=== PATIENT | female | born 1975 | race African-American/Black ===

== ENCOUNTER 2016-08-23 08:54 | Emergency (ER) | payer OTHER ==
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
[2016-08-23 11:39] VITALS: BP 136/92
== END 2016-08-23 11:35 | disposition home or self-care (01) ==
LOC: ER 08:54
DX: S16.1XXA Strain of muscle, fascia and tendon at neck level, initial encounter (principal); M54.2 Cervicalgia; M25.512 Pain in left shoulder; V87.7XXA Person injured in collision between other specified motor vehicles (traffic), initial encounter
CPT/HCPCS: 72050; 99283

== ENCOUNTER 2016-10-07 16:13 | Emergency (ER) | payer OTHER ==
[2016-10-07 17:03] VITALS: BP 152/98
[2016-10-07] MEDS ORDERED: KETOROLAC TROMETHAMINE INJ/PF 30 MG/1 ML SDV IM ONE (18:02)
[2016-10-07] MEDS ORDERED: DEXAMETHASONE SOD PHOS INJ 10 MG/1 ML VIAL IM ONE (18:02)
--- NOTE | 2016-10-07 18:06 | ER Document Report ---
HPI - HPI Pain Level: 3 Notes: Patient is a 41-year-old female who presents to the ED complaining of a headache that started this morning. The headache is frontal into her temples described as an achy discomfort. Patient states that the headache did not start abruptly. The pain does not radiate. Nothing makes her pain worse. Patient states that her symptoms have not worsened throughout the day. She has been using ibuprofen throughout the day with minimal relief. She denies any noise or light sensitivity. Denies any recent illness. Denies any muscle weakness/paralysis. Patient denies any and is currently on her menstrual period. Denies any head injury. Patient does not have a PCM. She does not take any medicines daily and no other significant past medical history. No drug allergies. Patient declined allergy to Benadryl that was listed above. - ROS Notes: REVIEW OF SYSTEMS: CONSTITUTIONAL : Denies fever, chills, or sweats. Denies recent illness. EENT: Denies eye, ear, throat, or mouth pain or symptoms. Denies nasal or sinus congestion or discharge. Denies throat, tongue, or mouth swelling or difficulty swallowing. CARDIOVASCULAR: Denies chest pain. Denies palpitations or racing or irregular heart beat. Denies ankle edema. RESPIRATORY: Denies cough, cold, or chest congestion. Denies shortness of breath, difficulty breathing, or wheezing. GASTROINTESTINAL: Denies abdominal pain or distention. Denies nausea, vomiting , or diarrhea. Denies blood in vomitus, stools, or per rectum. Denies black, tarry stools. Denies constipation. GENITOURINARY: Denies difficulty urinating, painful urination, burning, frequency, blood in urine, or discharge. FEMALE GENITOURINARY: Denies vaginal bleeding, heavy or abnormal periods, irregular periods. Denies vaginal discharge or odor. MUSCULOSKELETAL: Denies back or neck pain or stiffness. Denies joint pain or swelling. SKIN: Denies rash, lesions or sores. NEUROLOGICAL: see hpi. Denies confusion or altered mental status. Denies passing out or loss of consciousness. Denies dizziness or lightheadedness. Denies weakness or paralysis or loss of use of either side. Denies problems with gait or speech. Denies sensory loss, numbness, or tingling. Denies seizures. PSYCHIATRIC: Denies anxiety or stress. Denies depression, suicidal ideation, or homicidal ideation. ALL OTHER SYSTEMS REVIEWED AND NEGATIVE. Dictation was performed using [email or web address] voice recognition software - CARDIOVASCULAR Cardiovascular: DENIES: Chest pain - REPRODUCTIVE LMP: october 14 Reproductive: DENIES: : - DERM Skin Color: Normal Past Medical History - Social History Smoking Status: Never Smoker Chew tobacco use (# tins/day): No Frequency of alcohol use: None Drug Abuse: None Family History: Reviewed & Not Pertinent Patient has suicidal ideation: No Patient has homicidal ideation: No - Past Medical History Cardiac Medical History: Reports: Hx Hypertension Renal/ Medical History: Denies: Hx Peritoneal Dialysis Past Surgical History: Reports: Hx Cholecystectomy, Hx Gynecologic Surgery - cyst removal - Immunizations Hx Diphtheria, Pertussis, Tetanus Vaccination: Yes Vertical Provider Document - CONSTITUTIONAL Agree With Documented VS: Yes Notes: PHYSICAL EXAMINATION: GENERAL: Well-appearing, well-nourished and in no acute distress. HEAD: Atraumatic, normocephalic. Non-tender. EYES: Pupils equal round and reactive to light, extraocular movements intact, sclera anicteric, conjunctiva are normal. ENT: EAC clear b/l. TM's intact b/l without erythema, fluid, or perforation. Nares patent and without discharge. oropharynx clear without exudates. No tonsilar hypertrophy or erythema. Moist mucous membranes. No sinus tenderness. NECK: Normal range of motion, supple without lymphadenopathy. No rigidity. Non -tender. LUNGS: Breath sounds clear to auscultation bilaterally and equal. No wheezes rales or rhonchi. HEART: Regular rate and rhythm without murmurs, rubs, gallops. Musculoskeletal: Extremities b/l: FROM to passive/active. Strength 5+/5. Extremities: No cyanosis, clubbing, or edema b/l. Peripheral pulses 2+. Capillary refill less than 3 seconds. NEUROLOGICAL: Cranial nerves grossly intact. Normal speech, normal gait. Normal sensory, motor exams. Reflexes 2+. PSYCH: Normal mood, normal affect. SKIN: Warm, Dry, normal turgor, no rashes or lesions noted. - INFECTION CONTROL TRAVEL OUTSIDE OF THE [place] IN LAST 30 DAYS: No - RESPIRATORY O2 Sat by Pulse Oximetry: 100 Course - Re-evaluation Re-evalutation: 10/07/16 18:06 Patient is an afebrile, well-hydrated, 41-year-old female presents the ED with a headache. Vitals are stable with a slightly elevated blood pressure 1 reading. PE otherwise unremarkable for any focal neurological deficits. Patient states that she drove here from work so she does not have a ride. Patient declined migraine cocktail treatment in the ED. Patient expressed that her headache was mild and just wanted something simple to go with. Toradol 15 mg given IM today along with Decadron 10 mg IM. Low suspicion for any acute glaucoma, temporal arteritis, meningitis, tracheal hemorrhage, CVA. And benefits of treatment reviewed and understood by the patient. Conservative measures otherwise for symptoms. Recheck/social PCM in 2-3 days. Return to the ED with any worsening/concerning symptoms as reviewed in discharge. Consider consult with a neurologist as well. Patient is in agreement. - Vital Signs Vital signs: Temp Pulse Resp BP Pulse Ox 98.3 F 74 20 152/98 H 100 10/07/16 16:17 10/07/16 16:17 10/07/16 16:17 10/07/16 17:02 10/07/16 16:17 Discharge - Discharge Clinical Impression: Headache Qualifiers: Headache type: tension-type Headache chronicity pattern: acute headache Intractability: intractable Qualified Code(s): G44.201 - Tension-type headache, unspecified, intractable Condition: Stable Disposition: HOME, SELF-CARE Instructions: Headache ([facility]), Toradol Injection ([facility]) Additional Instructions: OTC meds as needed Maintain adequate fluid intake Lower stress levels Warm/cool compresses may help Recheck with your PCM in 2-3 days Return to the ED with any worsening symptoms and/or development of fever, worsening headache, chest pain, palpitations, syncope, shortness of breath, trouble breathing, abdominal pain, n/v/d, blood in stool/urine, loss of control of bowel/bladder, urinary retention, muscle weakness/paralysis, numbness/ tingling, or other worsening symptoms that are concerning to you. Forms: Elevated Blood Pressure Referrals: [facility] [Provider Group] - Follow up as needed [facility] [Provider Group] - Follow up as needed NEUROLOGY [Provider Group] - Follow up as needed
== END 2016-10-07 19:06 | disposition home or self-care (01) ==
LOC: ER 16:13
DX: G44.201 Tension-type headache, unspecified, intractable (principal)
CPT/HCPCS: 99283; 96372; 96374; J1885; J1100

== ENCOUNTER 2017-01-11 19:56 | Emergency (ER) | payer OTHER ==
--- NOTE | 2017-01-11 21:00 | ER Document Report ---
ED General - General Chief Complaint: Vaginal Bleeding Stated Complaint: VAGINAL BLEEDING Time Seen by Provider: 01/11/17 20:59 Notes: Patient is a 41 year old female who presents to the ED complaining of vaginal bleeding and pelvic pain. She states she had a period 3 weeks ago the was normal. Then over the past weeks she has been suffering from initial spotting to heavy clots with pelvic pain in her RLQ. She admits to nausea without vomiting otherwise denies abdominal pain, diarrhea or constipation. PRevious OBGYN s/f ovarian cysts and fibroids TRAVEL OUTSIDE OF THE [place] IN LAST 30 DAYS: No - Related Data Allergies/Adverse Reactions: diphenhydramine [Diphenhydramine] Adverse Reaction (Intermediate, Verified 11/07 15:07) Anxiety Past Medical History - Social History Smoking Status: Never Smoker Family History: Reviewed & Not Pertinent Patient has suicidal ideation: No Patient has homicidal ideation: No - Past Medical History Cardiac Medical History: Reports: Hx Hypertension Renal/ Medical History: Denies: Hx Peritoneal Dialysis Past Surgical History: Reports: Hx Cholecystectomy, Hx Gynecologic Surgery - cyst removal - Immunizations Hx Diphtheria, Pertussis, Tetanus Vaccination: Yes Review of Systems - Review of Systems Constitutional: No symptoms reported Cardiovascular: No symptoms reported Respiratory: No symptoms reported Gastrointestinal: No symptoms reported Female Genitourinary: See HPI -: Yes All other systems reviewed and negative Physical Exam - Vital signs Vitals: Temp Pulse Resp BP Pulse Ox 98.9 F 76 18 173/112 H 100 01/11/17 20:07 01/11/17 20:07 01/11/17 20:07 01/11/17 20:07 01/11/17 20:07 - Notes Notes: PHYSICAL EXAM GENERAL: Alert, interacts well. LUNGS: Clear to auscultation bilaterally, no wheezes, rales, or rhonchi. No respiratory distress. HEART: Regular rate and rhythm. No murmurs, gallops, or rubs. ABDOMEN: Soft, nondistended, nontender. No guarding, rebound, or rigidity.. Bowel sounds present in all 4 quadrants. FEMALE : Normal external exam. No evidence of lesions, lacerations, bruising or vesicles. Speculum exam normal cervix closed. No evidence of vaginal discharge with odor. No evidence of lesions. Moderate dark blood within the vaginal vault. Bimanual exam normal no cervical motion tenderness. No adnexal mass or adnexal tenderness. EXTREMITIES: Moves all 4 extremities spontaneously. No edema, radial and dorsalis pedis pulses 2/4 bilaterally. No cyanosis. NEUROLOGICAL: Alert and oriented x4. Normal speech. PSYCH: Normal affect, normal mood. SKIN: Warm, dry, normal turgor. No rashes or lesions noted. Course - Re-evaluation Re-evalutation: 01/12/17 22:30 Patient is a 41-year-old female who is hemodynamically stable, no acute distress afebrile. No evidence of leukocytosis or anemia noted on CBC. No evidence of electrolyte abnormalities, acute renal failure liver dysfunction noted on chemistry. hcg is negative. Transvaginal ultrasound does show evidence of a fibroid with echogenic matter consistent with blood. At this time patient is stable not requiring blood transfusion. Low clinical suspicion for any acute intra-abdominal or pelvic pathology given patient is afebrile absence of tachycardia and hypertension. Patient will be discharged home on Provera to follow-up with [facility]. Patient agrees with plan. - Vital Signs Vital signs: Temp Pulse Resp BP Pulse Ox 98.6 F 84 18 128/88 H 96 01/12/17 00:29 01/12/17 00:29 01/11/17 20:07 01/12/17 00:29 01/12/17 00:29 - Laboratory Result Diagrams: 01/11/17 21:10 Laboratory results interpreted by me: 01/11/17 01/11/17 21:10 23:12 Hgb 11.5 L Hct 34.2 L MCV 79 L MCH 26.5 L RDW 15.7 H Urine Blood LARGE H - Diagnostic Test Radiology reviewed: Reports reviewed Discharge - Discharge Clinical Impression: Dysfunctional uterine bleeding Condition: Good Disposition: HOME, SELF-CARE Additional Instructions: VAGINAL BLEEDING: You are having an episode of abnormal bleeding. Causes of abnormal vaginal bleeding can include miscarriage or tubal , tumors such as cancer or benign fibroids, medication effects, or hormone imbalance. Testing can eliminate unsuspected , tumors, or infection as a cause. "Dysfunctional uterine bleeding" is due to hormone imbalance, and is especially common at times when the normal cycle is disturbed -- whether by recent , use of control pills or hormones, or impending menopause. If the bleeding is innocent, most commonly a short course of hormones is given to restore the uterus to normal. Sometimes, the normal menstrual cycle corrects itself naturally. Sometimes , brief hormone therapy, or even a D&C is required. Your physician will advise you. Treatment for anemia may be required if bleeding is severe. You should rest and avoid intercourse until the bleeding is controlled. Call the doctor or return for re-examination if you feel faint, have increasing pain, or have a major increase in the amount of bleeding. FIBROIDS: Fibroids are benign growths or tumors in the uterus. They can cause enlargement of the uterus, irregular bleeding, severe bleeding with periods, and abdominal pain. Anemia may result if periods are heavy. Fibroids tend to grow until menopause, then slowly shrink. If fibroids cause severe symptoms, they can be treated surgically. Call or return if vaginal bleeding or pain becomes severe. PROVERA: Provera (medroxyprogesterone) is usually used to stop excessive uterine bleeding or to regulate the periods. Provera is a form of progesterone, the hormone that stimulates the uterus lining to mature during the second half of your cycle. High doses of Provera can usually stop uterine bleeding. It's most useful for the abnormal bleeding that occurs when periods are irregular, such as around menopause. Provera usually isn't helpful for bleeding that occurs after Depo-Provera or Norplant. There is often another heavy "period" when you finish the Provera. Afterwards, the periods usually return to normal within a month or two. Contact your doctor if bleeding becomes more severe, or if you develop abdominal pain, lightheadedness, fever, or other new symptoms. ORAL NARCOTIC MEDICATION: You have been given a prescription for pain control. This medication is a narcotic. It's best taken with food, as nausea can result if taken on an empty stomach. Don't operate machinery or drive within six hours of taking this medication. Do not combine this medicine with alcohol, or with any medication which can cause sedation (such as cold tablets or sleeping pills) unless you get permission from the physician. Narcotics tend to cause constipation. If possible, drink plenty of fluids and eat a diet high in fiber and fruits. Please be aware that prescription narcotics also have the potential for abuse. People become addicted to these medications because of the general sense of wellbeing that they induce. This feeling along with a significant reduction in tension, anxiety, and aggression provides a stimulating seductive quality to these drugs. Once your pain is under control, we encourage you to discard your unused narcotics. FOLLOW-UP CARE: If you have been referred to a physician for follow-up care, call the physician s office for an appointment as you were instructed or within the next two days. If you experience worsening or a significant change in your symptoms (very heavy bleeding with large clots of blood, passage of tissue, more severe abdominal / pelvic pain or cramping, feeling faint or severe weakness, fever, etc.), notify the physician immediately or return to the Emergency Department at any time for re-evaluation. OBSTETRIC-GYNECOLOGIC (OB-NURSE CARE MANAGER) PHYSICIANS IN ADVANCE: [facility] [address] [place] [address] [phone] Prescriptions: Medroxyprogesterone Acet [Provera 10 Mg Tablet] 10 mg PO DAILY #7 tablet Tramadol HCl 50 mg PO BID #10 tablet Forms: Return to Work Referrals: VERONIKA HOFFMAN MD [Primary Care Provider] - Follow up in 1 week
[2017-01-11 21:24] LABS: ABSOLUTE BASOPHILS # (AUTO) 0.1 10^3/uL (0.0-0.2); ABSOLUTE EOSINOPHILS # (AUTO) 0.1 10^3/uL (0.0-0.6); ABSOLUTE LYMPHOCYTES (AUTO) 2.7 10^3/uL (0.5-4.7); ABSOLUTE MONOCYTES (AUTO) 0.3 10^3/uL (0.1-1.4); BASOPHILS % (AUTO) 1.4 % (0-2); EOSINOPHILS % (AUTO) 1.7 % (0-6); HEMATOCRIT 34.2 % (36.0-47.0); HEMOGLOBIN 11.5 g/dL (12.0-15.5); HGB HCT DIFFERENCE 0.3; LYMPHOCYTES % (AUTO) 42.8 % (13-45); MEAN CORPUSCULAR HEMOGLOBIN 26.5 pg (27.0-33.4); MEAN CORPUSCULAR HGB CONC 33.5 g/dL (32.0-36.0); MEAN CORPUSCULAR VOLUME 79 fl (80-97); MONOCYTES % (AUTO) 5.4 % (3-13); RED BLOOD COUNT 4.32 10^6/uL (3.72-5.28); RED CELL DISTRIBUTION WIDTH 15.7 % (11.5-14.0); SEGMENTED NEUTROPHILS % (AUTO) 48.7 % (42-78); WHITE BLOOD COUNT 6.3 10^3/uL (4.0-10.5)
--- NOTE | 2017-01-11 23:50 | RADIOLOGY REPORT (SQ) ---
EXAM DESCRIPTION: U/S NON OB PEL TV W/DOPPLER COMPLETED DATE/TIME: 01/11/2017 11:38 pm REASON FOR STUDY: pelvic pain and dys uterine bleeding COMPARISON: None. TECHNIQUE: Dynamic and static grayscale images acquired of the pelvis via transvaginal approach and recorded on PACS. Additional selected color Doppler and spectral images recorded. LIMITATIONS: None. FINDINGS: UTERUS: The uterus is prominent, demonstrating coarsened echotexture. 4.8 x 3.8 x 4.2 cm hypoechoic intramural focus may represent an intramural fibroid. ENDOMETRIAL STRIPE: No focal or generalized thickening. No masses. Incidental note is made of a smal l amount of fluid splaying the endometrial echo complex CERVIX: A 2 cm nabothian cyst is present. The cervix measures 3.4 cm. RIGHT OVARY: No abnormal masses. RIGHT OVARY DOPPLER: Normal arterial vascular flow without evidence for torsion. LEFT OVARY: No abnormal masses. LEFT OVARY DOPPLER: Normal arterial vascular flow without evidence for torsion. FREE FLUID: None noted. OTHER: No other significant finding. MEASUREMENTS: UTERUS: 10.2 x 6.8 x 7.1 cm ENDOMETRIAL STRIPE: 0.5 cm RIGHT OVARY: 3.4 x 3.6 x 2.7 cm LEFT OVARY: 4.5 x 3.8 x 2.0 cm IMPRESSION: Prominent uterus demonstrating coarsened echotexture suggestive of adenomyosis. A 4.8 c m intramural fibroid may be present. Small amount of fluid is seen splaying the endometrial echo com plex in this patient with reported dysfunctional uterine bleeding. Normal sonographic appearance of the ovaries. TECHNICAL DOCUMENTATION: JOB ID: [id number] [employer] All Rights Reserved
[2017-01-11 23:59] LABS: APPEARANCE,URINE CLEAR; BILIRUBIN,URINE NEGATIVE (NEGATIVE); GLUCOSE, URINE NEGATIVE (NEGATIVE); KETONES,URINE NEGATIVE (NEGATIVE); LEUKOCYTE ESTERASE,URINE NEGATIVE (NEGATIVE); NITRITE,URINE NEGATIVE (NEGATIVE); PROTEIN,URINE NEGATIVE (NEGATIVE); URINE SPECIFIC GRAVITY 1.028; UROBILINOGEN,URINE NEGATIVE mg/dL (<2.0)
[2017-01-12 00:04] LABS: CHLAM PCR NOT DETECTED (NOT DETECT)
[2017-01-12 00:31] VITALS: BP 128/88
== END 2017-01-12 00:29 | disposition home or self-care (01) ==
LOC: ER 19:56
DX: N93.8 Other specified abnormal uterine and vaginal bleeding (principal); D21.9 Benign neoplasm of connective and other soft tissue, unspecified; R10.2 Pelvic and perineal pain; R11.0 Nausea; I10 Essential (primary) hypertension; Z90.49 Acquired absence of other specified parts of digestive tract; Z87.42 Personal history of other diseases of the female genital tract
CPT/HCPCS: 36415; 76830; 81001; 84703; 85025; 87210; 87491; 87591; 93976; 99284

== ENCOUNTER 2017-09-03 21:20 | Emergency (ER) | payer OTHER ==
[2017-09-03 23:25] VITALS: BP 184/107
--- NOTE | 2017-09-04 00:10 | ER Document Report ---
ED Blood Pressure Problem - General Chief Complaint: High Blood Pressure Stated Complaint: BLOOD PRESSURE PROBLEMS Time Seen by Provider: 09/03/17 23:59 Notes: Patient is a 42-year-old female who comes emergency department for chief complaint of elevated blood pressure. She states she has been out of her losartan for several months, she states that she is looking for a new primary care provider. She denies any headache, chest pain, focal numbness or weakness , or any current symptoms. She took her blood pressure 3 times throughout the day and the diastolic was greater than 100 each time. Only other medical history reported is insomnia. She denies smoking, recreational drugs. TRAVEL OUTSIDE OF THE [place] IN LAST 30 DAYS: No - Related Data Allergies/Adverse Reactions: diphenhydramine [Diphenhydramine] Adverse Reaction (Intermediate, Verified 11/07 15:07) Anxiety Past Medical History - General Information source: Patient - Social History Smoking Status: Never Smoker Frequency of alcohol use: None Drug Abuse: None Lives with: Family Family History: Reviewed & Not Pertinent - Past Medical History Cardiac Medical History: Reports: Hx Hypertension Renal/ Medical History: Denies: Hx Peritoneal Dialysis Past Surgical History: Reports: Hx Cholecystectomy, Hx Gynecologic Surgery - cyst removal - Immunizations Hx Diphtheria, Pertussis, Tetanus Vaccination: Yes Review of Systems - Review of Systems Constitutional: No symptoms reported EENT: No symptoms reported Cardiovascular: See HPI Respiratory: No symptoms reported Gastrointestinal: No symptoms reported Genitourinary: No symptoms reported Female Genitourinary: No symptoms reported Musculoskeletal: No symptoms reported Skin: No symptoms reported Hematologic/Lymphatic: No symptoms reported Neurological/Psychological: No symptoms reported Physical Exam - Vital signs Vitals: Temp Pulse Resp BP Pulse Ox 99.2 F 78 16 184/108 H 95 09/03/17 21:55 09/03/17 21:55 09/03/17 21:55 09/03/17 21:55 09/03/17 21:55 - Notes Notes: GENERAL: Alert, interacts well. No acute distress. HEAD: Normocephalic, atraumatic. EYES: Pupils equal, round, and reactive to light. Extraocular movements intact. ENT: Oral mucosa moist, tongue midline. NECK: Full range of motion. Supple. Trachea midline. LUNGS: Clear to auscultation bilaterally, no wheezes, rales, or rhonchi. No respiratory distress. HEART: Regular rate and rhythm. No murmur ABDOMEN: Soft, non-tender. Non-distended. Bowel sounds present in all 4 quadrants. EXTREMITIES: Moves all 4 extremities spontaneously. No edema, normal radial and dorsalis pedis pulses bilaterally. No cyanosis. BACK: no cervical, thoracic, lumbar midline tenderness. No saddle anesthesia, normal distal neurovascular exam. NEUROLOGICAL: Alert and oriented x3. Normal speech. [cranial nerves II through XII grossly intact]. PSYCH: Normal affect, normal mood. SKIN: Warm, dry, normal turgor. No rashes or lesions noted. Course - Re-evaluation Re-evalutation: Patient presenting with asymptomatic hypertension, I rechecked at bedside, systolic is 169, diastolic is 104. Patient is out of her losartan. She is not 100% sure of the dose. Provided with expected prescription, she has a bottle at home to check her previous dose and adjust accordingly. Provided with primary care referral, discussed return precautions, patient states understanding and agreement. - Vital Signs Vital signs: Temp Pulse Resp BP Pulse Ox 99.2 F 78 16 184/107 H 100 09/03/17 21:55 09/03/17 23:24 09/03/17 23:24 09/03/17 23:24 09/03/17 23:24 Discharge - Discharge Clinical Impression: Hypertension Qualifiers: Hypertension type: essential hypertension Qualified Code(s): I10 - Essential ( primary) hypertension Condition: Stable Disposition: HOME, SELF-CARE Additional Instructions: Your blood pressure was elevated tonight. You have been started on a starting dose of losartan. Please compare this to your previous dose that worked, if needed you might have to take two, or you might have to cut the pill in half based on your previous dose. Follow-up with the primary care referral listed, call them to set this up. Return to the emergency department if you develop any concerning symptoms including severe headache, chest pain, or any other concerning symptoms. Prescriptions: Losartan Potassium 50 mg PO DAILY #30 tablet Forms: Return to Work Referrals: SHEREE SARAVIA MD [ACTIVE STAFF] - Follow up tomorrow
== END 2017-09-04 00:07 | disposition home or self-care (01) ==
LOC: ER 21:20
DX: I10 Essential (primary) hypertension (principal); Z90.49 Acquired absence of other specified parts of digestive tract
CPT/HCPCS: 99283

== ENCOUNTER 2017-10-18 15:35 | Emergency (ER) | payer OTHER ==
[2017-10-18 15:50] VITALS: BP 160/104
--- NOTE | 2017-10-18 16:22 | ER Document Report ---
ED GI/ - General Chief Complaint: Foreign Body in Vagina Stated Complaint: VAGINAL DISCOMFORT Time Seen by Provider: 10/18/17 16:15 Mode of Arrival: Ambulatory Information source: Patient Notes: 42-year-old female presents to ED for complaint of vaginal odor and possible retained tampon. She states that the odor has gotten so bad she sure she has bacterial vaginosis. She states she thinks she might have a tampon in there but does not remember if she does is from 3 or 4 days ago. At first patient states she had had any sex for a while so she knew she was not and was not STD but then after the exam was completed and I was getting ready to walk and she said oh yes I did have sex you can check that to. TRAVEL OUTSIDE OF THE [place] IN LAST 30 DAYS: No - HPI Patient complains to provider of: Vaginal discharge, Vaginal pain Onset: Other - Progressed over the last 3 days Timing/Duration: Gradual Quality of pain: Achy, Pressure Severity at maximum: Moderate Severity in ED: Moderate Pain Level: 2 Location: Vaginal Associated symptoms: Vaginal discharge - Vaginal odor Exacerbated by: Denies Relieved by: Denies Similar symptoms previously: Yes Recently seen / treated by doctor: No - Related Data Allergies/Adverse Reactions: diphenhydramine [Diphenhydramine] Adverse Reaction (Intermediate, Verified 10/18 15:38) Anxiety Past Medical History - General Information source: Patient - Social History Smoking Status: Never Smoker Cigarette use (# per day): No Chew tobacco use (# tins/day): No Smoking Education Provided: No Frequency of alcohol use: None Drug Abuse: None Occupation: [employer] Lives with: Alone Family History: Reviewed & Not Pertinent - Past Medical History Cardiac Medical History: Reports: Hx Hypertension Pulmonary Medical History: Reports: None EENT Medical History: Reports: None Neurological Medical History: Reports: None Endocrine Medical History: Reports: None Renal/ Medical History: Reports: Hx Ovarian Cysts Malignancy Medical History: Reports: None GI Medical History: Reports: None Musculoskeletal Medical History: Reports Hx Musculoskeletal Trauma Skin Medical History: Reports None Psychiatric Medical History: Reports: None, Other - Insomnia Traumatic Medical History: Reports: None Infectious Medical History: Reports: None Past Surgical History: Reports: Hx Cholecystectomy, Hx Gynecologic Surgery - cyst removal, Hx Orthopedic Surgery - Foot surgery - Immunizations Hx Diphtheria, Pertussis, Tetanus Vaccination: Yes Review of Systems - Review of Systems Constitutional: No symptoms reported EENT: No symptoms reported Cardiovascular: No symptoms reported Respiratory: No symptoms reported Gastrointestinal: No symptoms reported Genitourinary: No symptoms reported Female Genitourinary: Vaginal discharge, Vaginal odor, Other - That she may have left a tampon in her vagina Musculoskeletal: No symptoms reported Skin: No symptoms reported Hematologic/Lymphatic: No symptoms reported Neurological/Psychological: No symptoms reported -: Yes All other systems reviewed and negative Physical Exam - Vital signs Vitals: Temp Pulse Resp BP Pulse Ox 98.8 F 68 20 160/104 H 99 10/18/17 15:49 10/18/17 15:49 10/18/17 15:49 10/18/17 15:49 10/18/17 15:49 Interpretation: Normal - General General appearance: Appears well, Alert - HEENT Head: Normocephalic, Atraumatic Eyes: Normal Pupils: PERRL - Respiratory Respiratory status: No respiratory distress Chest status: Nontender Breath sounds: Normal Chest palpation: Normal - Cardiovascular Rhythm: Regular Heart sounds: Normal auscultation Murmur: No - Abdominal Inspection: Normal Distension: No distension Bowel sounds: Normal Tenderness: Nontender Organomegaly: No organomegaly - Genitourinary External exam: Normal Speculum exam: Vaginal discharge, Other - No tampon noted. Patient had large amount of foul-smelling purulent drainage no fevers Vaginal bleeding: None Bimanuel exam: Normal - Back Back: Normal, Nontender - Extremities General upper extremity: Normal inspection, Nontender, Normal color, Normal ROM , Normal temperature General lower extremity: Normal inspection, Nontender, Normal color, Normal ROM , Normal temperature, Normal weight bearing. No: Mary's sign - Neurological Neuro grossly intact: Yes Cognition: Normal Orientation: AAOx4 [place] Coma Scale Eye Opening: Spontaneous [place] Coma Scale Verbal: Oriented [place] Coma Scale Motor: Obeys Commands Yael Coma Scale Total: 15 Speech: Normal Motor strength normal: LUE, RUE, LLE, RLE Sensory: Normal - Psychological Associated symptoms: Normal affect, Normal mood - Skin Skin Temperature: Warm Skin Moisture: Dry Skin Color: Normal Course - Re-evaluation Re-evalutation: 10/19/17 02:37 Patient was treated with Rocephin, doxycycline, and Flagyl for her vaginitis. She did not wait for the results of the GC and chlamydia. She was instructed to call the ER 3 hours after her discharge. Patient did call for her results and was told that she was negative for GC and chlamydia. Patient was very happy with the results. She was instructed she did not need to feel that doxycycline as she was negative. - Vital Signs Vital signs: Temp Pulse Resp BP Pulse Ox 98.8 F 68 20 160/104 H 99 10/18/17 15:49 10/18/17 15:49 10/18/17 15:49 10/18/17 15:49 10/18/17 15:49 - Laboratory Laboratory results interpreted by me: 10/18/17 16:22 Urine Blood SMALL H Urine Urobilinogen 4.0 H Discharge - Discharge Clinical Impression: Bacterial vaginitis Vaginitis Qualifiers: Chronicity: acute Qualified Code(s): N76.0 - Acute vaginitis Condition: Stable Disposition: HOME, SELF-CARE Instructions: Family Physicians / Practices Additional Instructions: VAGINITIS: Your exam shows that you have vaginitis, a vaginal infection. The infection can be caused by a many different organisms, including trichomonas or Gardnerella. The usual symptoms are vaginal irritation and discharge. The treatment is usually antibiotics such as Flagyl. Laboratory tests can determine which germ is responsible. Use the medication as prescribed. Because this infection can be transmitted sexually, your sexual partner may need to be checked and treated also. If your physician has not discussed this with you, please check before resuming sexual relations. If a culture shows gonorrhea or chlamydia, the infection must be reported to the health department. Call the doctor if you develop pelvic pain, fever, or problems with urination, or if you don't improve as expected. VAGINOSIS, BACTERIAL: Your exam shows you have bacterial vaginosis. This condition is due to an overgrowth of bacteria in the vagina. Symptoms may include vaginal itching or pain, a smelly discharge, and sometimes burning with urination. Normally this is not transmitted by sexual contact. Vaginosis can be treated with oral or topical antibiotics. Metronidazole ( Flagyl) pills are usually effective. Topical vaginal creams include Cleocin and Metro-Gel. You should avoid sexual contact until your symptoms are all better. Call the doctor if you develop pelvic pain, fever, or problems with urination, or if you don't improve as expected. CEPHALOSPORINS: An antibiotic of the cephalosporin class has been prescribed. This type of antibiotic covers a wide variety of infections, including those of the skin, lungs, middle ear, and urinary tract. This antibiotic is somewhat similar to the penicillin family. In rare cases , a person who is allergic to penicillin will also be allergic to this medication. If you have had a severe allergic reaction to penicillin, and have not taken this antibiotic since that time, notify your doctor. Antibiotics which cover many germs ("broad spectrum" antibiotics) are more likely to cause diarrhea or "yeast" infections. Women prone to vaginal yeast problems may suffer an attack after taking this antibiotic. In infants, oral thrush (white spots "stuck" on the cheek) or yeast diaper rash may result. See your doctor if these problems occur. Call the doctor at once if you develop hives, itching, shortness of breath , or lightheadedness. DOXYCYCLINE: Doxycycline (Vibramycin, Doryx) is an antibiotic of the tetracycline family. This type of drug is useful for infections of the respiratory tract and genital tract, and is sometimes used for intestinal infections. Unlike most tetracyclines, doxycycline can be taken with food. It is longer acting, and (usually) less prone to side effects than regular tetracycline. Tetracycline antibiotics can stain immature teeth and SHOULD NOT BE TAKEN BY CHILDREN, NURSING MOTHERS, OR WOMEN. Tetracyclines can make you more prone to sunburn. Abdominal cramping, nausea, and diarrhea are occasional side effects. Women may experience vaginal yeast infections. Call the doctor at once if you develop hives, itching, shortness of breath , or lightheadedness. METRONIDAZOLE: Metronidazole (Flagyl) has been prescribed. This medication is used to kill a type of bacteria called anaerobes, and protozoan parasites such as trichomonas and Giardia. Flagyl often causes a metallic taste in the mouth and mild nausea. Do not use alcohol in any form with Flagyl (including alcohol in medication elixirs). Flagyl interacts with alcohol to cause flushing, palpitations, headache, stomach cramps, and vomiting. Do not use Flagyl if you are taking Antabuse (disulfiram). Call the doctor at once if you develop rash, shortness of breath, itching, or lightheadedness. FOLLOW-UP CARE: If you have been referred to a physician for follow-up care, call the physician s office for an appointment as you were instructed or within the next two days. If you experience worsening or a significant change in your symptoms, notify the physician immediately or return to the Emergency Department at any time for re-evaluation. He is late at least 3 hours before calling for your results. You can call [phone] and I will tell you your results. Prescriptions: Doxycycline Hyclate 100 mg PO BID #14 capsule Metronidazole [Flagyl 500 mg Tablet] 500 mg PO BID #28 tablet Forms: Elevated Blood Pressure, Return to Work
[2017-10-18 16:43] LABS: BACTERIA (WET MOUNT) 3+ BACTERIA SEEN; EPITHELIALS (WET MOUNT) 3+ EPITHELIALS SEEN; RBCS (WET MOUNT) FEW RBCS SEEN; T.VAGINALIS (WET MOUNT) NO TRICHOMONAS SEEN; WBCS (WET MOUNT) 1+ WBCS SEEN; YEAST (WET MOUNT) NO YEAST SEEN
[2017-10-18 17:01] LABS: APPEARANCE,URINE CLEAR; BILIRUBIN,URINE NEGATIVE (NEGATIVE); COLOR,URINE YELLOW; GLUCOSE, URINE NEGATIVE (NEGATIVE); KETONES,URINE NEGATIVE (NEGATIVE); LEUKOCYTE ESTERASE,URINE NEGATIVE (NEGATIVE); NITRITE,URINE NEGATIVE (NEGATIVE); PROTEIN,URINE NEGATIVE (NEGATIVE); URINE SPECIFIC GRAVITY 1.023
[2017-10-18] MEDS ORDERED: METRONIDAZOLE 500 MG TABLET PO ONE (17:13)
[2017-10-18] MEDS ORDERED: LIDOCAINE 1% INJ-PF (10 MG/ML) 30 ML SDV INJ ONE (17:13)
[2017-10-18] MEDS ORDERED: CEFTRIAXONE INJ 250 MG VIAL IM ONE (17:13)
[2017-10-18] MEDS ORDERED: DOXYCYCLINE HYCLATE 100 MG TABLET PO ONE (17:13)
[2017-10-18 18:08] LABS: CHLAM PCR NOT DETECTED (NOT DETECT); GON PCR NOT DETECTED (NOT DETECT)
== END 2017-10-18 17:41 | disposition home or self-care (01) ==
LOC: ER 15:35
DX: N76.0 Acute vaginitis (principal); B96.89 Other specified bacterial agents as the cause of diseases classified elsewhere; I10 Essential (primary) hypertension; Z90.49 Acquired absence of other specified parts of digestive tract
CPT/HCPCS: 99283; 96372; 87086; 87210; 81025; 87088; 81001; 87491; 87591; J3490; J0696

== ENCOUNTER 2017-10-31 16:06 | Emergency (ER) | payer OTHER ==
[2017-10-31 16:13] VITALS: BP 170/100
[2017-10-31] MEDS ORDERED: FLUCONAZOLE 100 MG TABLET PO ONE (16:23)
--- NOTE | 2017-10-31 16:28 | ER Document Report ---
ED General - General Chief Complaint: Pelvic Pain Stated Complaint: POSSIBLE YEAST INFECTION Time Seen by Provider: 10/31/17 16:11 Mode of Arrival: Ambulatory Information source: Patient Notes: Patient with complaint of probable yeast infection. Patient with itching and white discharge. Patient reports she was recently treated for bacterial vaginosis approximately 12 days ago. Denies any other symptoms. TRAVEL OUTSIDE OF THE [place] IN LAST 30 DAYS: No - Related Data Allergies/Adverse Reactions: diphenhydramine [Diphenhydramine] Adverse Reaction (Intermediate, Verified 10/31 16:08) Anxiety Past Medical History - General Information source: Patient - Social History Smoking Status: Current Every Day Smoker Smoking Education Provided: Yes Frequency of alcohol use: None Family History: Reviewed & Not Pertinent - Past Medical History Cardiac Medical History: Reports: Hx Hypertension Renal/ Medical History: Reports: Hx Ovarian Cysts. Denies: Hx Peritoneal Dialysis Musculoskeletal Medical History: Reports Hx Musculoskeletal Trauma Past Surgical History: Reports: Hx Cholecystectomy, Hx Gynecologic Surgery - cyst removal, Hx Orthopedic Surgery - Foot surgery - Immunizations Hx Diphtheria, Pertussis, Tetanus Vaccination: Yes Review of Systems - Review of Systems Constitutional: No symptoms reported EENT: No symptoms reported Cardiovascular: No symptoms reported Respiratory: No symptoms reported Gastrointestinal: No symptoms reported Genitourinary: No symptoms reported Female Genitourinary: See HPI Musculoskeletal: No symptoms reported Skin: No symptoms reported Hematologic/Lymphatic: No symptoms reported Neurological/Psychological: No symptoms reported Physical Exam - Vital signs Vitals: Temp Pulse Resp BP Pulse Ox 98.3 F 81 18 170/100 H 98 10/31/17 16:11 10/31/17 16:11 10/31/17 16:11 10/31/17 16:11 10/31/17 16:11 - Notes Notes: PHYSICAL EXAMINATION: GENERAL: Well-appearing, well-nourished and in no acute distress. HEAD: Atraumatic, normocephalic. EYES: Pupils equal round and reactive to light, extraocular movements intact, conjunctiva are normal. ENT: Nares patent, oropharynx clear without exudates. Moist mucous membranes. NECK: Normal range of motion, supple without lymphadenopathy LUNGS: Breath sounds clear to auscultation bilaterally and equal. No wheezes rales or rhonchi. HEART: Regular rate and rhythm without murmurs ABDOMEN: Soft, nontender, nondistended abdomen. No guarding, no rebound. No masses appreciated. Musculoskeletal: Normal range of motion, no pitting or edema. No cyanosis. NEUROLOGICAL: Cranial nerves grossly intact. Normal speech, normal gait. Normal sensory, motor exams PSYCH: Normal mood, normal affect. SKIN: Warm, Dry, normal turgor, no rashes or lesions noted. Course - Re-evaluation Re-evalutation: Will treat patient for vaginal yeast infection based upon stated symptoms. Patient reports that she always gets a yeast infection after treatment with antibiotics but she forgot to ask for diflucan when she was seen here last. - Vital Signs Vital signs: Temp Pulse Resp BP Pulse Ox 98.3 F 81 18 170/100 H 98 10/31/17 16:11 10/31/17 16:11 10/31/17 16:11 10/31/17 16:11 10/31/17 16:11 Discharge - Discharge Clinical Impression: Yeast infection of the vagina Condition: Stable Disposition: HOME, SELF-CARE Additional Instructions: Vaginal Yeast Infection You have evidence of a yeast infection -- called "lisseth." A vaginal yeast infection often causes itching and discharge. While not dangerous, it can be very unpleasant. A yeast infection often follows the use of powerful antibiotics. It is more likely to occur in diabetics. The treatment now is usually a single pill of Diflucan, but also an antifungal cream or suppository may be used for a few days. You do not need to avoid sexual intercourse. Recurrences are common. You can make a recurrence less likely by wearing cotton underwear and avoiding tight clothing. For mild recurrences, you can try [id number] creams or suppositories that are made specifically for yeast. If the symptoms do not resolve, you should follow up for re-examination. Sometimes treatment of the sexual partner is necessary if infections are recurrent. Prescriptions: Fluconazole [Diflucan 100 Mg Tablet] 100 mg PO DAILY #1 tablet
== END 2017-10-31 16:32 | disposition home or self-care (01) ==
LOC: ER 16:06
DX: B37.3 Candidiasis of vulva and vagina (principal); R10.2 Pelvic and perineal pain; F17.210 Nicotine dependence, cigarettes, uncomplicated; Z90.49 Acquired absence of other specified parts of digestive tract
CPT/HCPCS: 99283

== ENCOUNTER 2018-01-20 14:19 | Emergency (ER) | payer OTHER ==
[2018-01-20 14:41] VITALS: BP 159/91
--- NOTE | 2018-01-20 14:49 | ER Document Report ---
ED General - General Chief Complaint: Headache Stated Complaint: BLOOD PRESSURE ISSUE, HEADACHE Time Seen by Provider: 01/20/18 14:42 Notes: Patient is a 42-year-old female that presents to the emergency department for chief complaint of elevated blood pressure. Patient states that her blood pressure has been more elevated, and she has been out of her medication for a few weeks, she has had a mild headache at night, but denies having any headache at this time. She was on losartan 50 mg, she is in between primary care physicians at this time. She cannot see the next primary care physician for 2 weeks, and would like a refill of the losartan 50 mg she was taking daily. She denies having any chest pain, shortness of breath, nausea, vomiting, blurred vision, changes in her vision, decreased urine. She states overall she feels pretty well and would like to go back to work. Past Medical History: Hypertension Past Surgical History: Cholecystectomy Social History: Denies tobacco, alcohol or drug use Family History: Reviewed and noncontributory for presenting illness Allergies: Reviewed, see documented allergy list. REVIEW OF SYSTEMS: Unless otherwise stated in this report the patient's positive and negative responses for review of systems for constitutional, eyes, ENT, cardiovascular, respiratory, gastrointestinal, neurological, genitourinary, musculoskeletal, and integumentary systems and related systems to the presenting problem are either as stated in the HPI or were not pertinent or were negative for the symptoms and/or complaints related to the presenting medical problem. PHYSICAL EXAMINATION: Vital signs reviewed, nursing noted reviewed. GENERAL: Well-appearing, well-nourished and in no acute distress. HEAD: Atraumatic, normocephalic. EYES: Eyes appear normal, extraocular movements intact, sclera anicteric, conjunctiva are normal. ENT: nares patent, oropharynx clear without exudates. Moist mucous membranes. NECK: Normal range of motion, supple without lymphadenopathy LUNGS: Breath sounds clear to auscultation bilaterally and equal. No wheezes rales or rhonchi. HEART: Regular rate and rhythm without murmurs ABDOMEN: Soft, nontender, normoactive bowel sounds. No rebound, guarding, or rigidity. No masses appreciated. EXTREMITIES: Nontender, good range of motion, no pitting or edema. NEUROLOGICAL: No focal neurological deficits. Moves all extremities spontaneously Motor and sensory grossly intact on exam. PSYCH: Normal mood, normal affect. SKIN: Warm, Dry, normal turgor, no rashes or lesions noted on exposed skin TRAVEL OUTSIDE OF THE [place] IN LAST 30 DAYS: No - Related Data Allergies/Adverse Reactions: diphenhydramine [Diphenhydramine] Adverse Reaction (Intermediate, Verified 01/20 14:42) Anxiety Past Medical History - Social History Smoking Status: Never Smoker Frequency of alcohol use: None Drug Abuse: None Family History: Reviewed & Not Pertinent Patient has suicidal ideation: No Patient has homicidal ideation: No - Past Medical History Cardiac Medical History: Reports: Hx Hypertension Renal/ Medical History: Reports: Hx Ovarian Cysts. Denies: Hx Peritoneal Dialysis Musculoskeletal Medical History: Reports Hx Musculoskeletal Trauma Past Surgical History: Reports: Hx Cholecystectomy, Hx Gynecologic Surgery - cyst removal, Hx Orthopedic Surgery - Foot surgery - Immunizations Hx Diphtheria, Pertussis, Tetanus Vaccination: Yes Physical Exam - Vital signs Vitals: Temp Pulse Resp BP Pulse Ox 99.0 F 63 18 159/91 H 100 01/20/18 14:40 01/20/18 14:40 01/20/18 14:40 01/20/18 14:40 01/20/18 14:40 Course - Re-evaluation Re-evalutation: Patient appears well on exam, will discharge her home with losartan 50 mg daily that she was previously on, for 2 weeks before she can follow-up with her primary care physician that she is establishing care with, patient did not have any symptoms on my exam, no further workup indicated, patient was discharged to home. - Vital Signs Vital signs: Temp Pulse Resp BP Pulse Ox 99.0 F 63 18 159/91 H 100 01/20/18 14:40 01/20/18 14:40 01/20/18 14:40 01/20/18 14:40 01/20/18 14:40 Discharge - Discharge Clinical Impression: Hypertension Qualifiers: Hypertension type: unspecified Qualified Code(s): I10 - Essential (primary) hypertension Condition: Stable Disposition: HOME, SELF-CARE Instructions: High Blood Pressure ([facility]) Prescriptions: Losartan Potassium 50 mg PO DAILY #15 tablet Forms: Elevated Blood Pressure, Return to Work Referrals: KWAN ASTORGA MD [ACTIVE STAFF] - Follow up as needed (or your primary care as scheduled. )
== END 2018-01-20 14:51 | disposition home or self-care (01) ==
LOC: ER 14:19
DX: I10 Essential (primary) hypertension (principal); T46.5X6A Underdosing of other antihypertensive drugs, initial encounter; Z91.128 Patient's intentional underdosing of medication regimen for other reason; Z91.14 Patient's other noncompliance with medication regimen
CPT/HCPCS: 99283

== ENCOUNTER 2018-02-02 20:50 | Emergency (ER) | payer OTHER ==
[2018-02-02] MEDS ORDERED: ASPIRIN 81 MG TABLET, CHEWABLE PO ONE (20:55)
--- NOTE | 2018-02-02 21:24 | RADIOLOGY REPORT (SQ) ---
PROCEDURE: XR CHEST 1 VIEW HISTORY: cp COMPARISON: None TECHNIQUE: The study was done on 02/02/2018 at 9:08 PM, local time Single projection of the chest was done. FINDINGS: The lung merrill are well inflated . There are no discrete airspace infiltrates, pneumothoraces or pleural effusions. The pulmonary vascularity is normal. The cardiomediastinal silhouette is unremarkable for patient's age and sex. IMPRESSION: There is no acute pleural-parenchymal process seen in the imaged lung merrill. Location of Interpretation: [facility]
[2018-02-02 21:52] LABS: ABSOLUTE BASOPHILS # (AUTO) 0.1 10^3/uL (0.0-0.2); ABSOLUTE EOSINOPHILS # (AUTO) 0.2 10^3/uL (0.0-0.6); ABSOLUTE LYMPHOCYTES (AUTO) 2.6 10^3/uL (0.5-4.7); ABSOLUTE MONOCYTES (AUTO) 0.5 10^3/uL (0.1-1.4); ABSOLUTE NEUT (AUTO) 3.1 10^3/uL (1.7-8.2); BASOPHILS % (AUTO) 0.8 % (0-2); EOSINOPHILS % (AUTO) 2.4 % (0-6); HEMATOCRIT 32.8 % (36.0-47.0); HEMOGLOBIN 10.9 g/dL (12.0-15.5); LYMPHOCYTES % (AUTO) 40.8 % (13-45); MEAN CORPUSCULAR HEMOGLOBIN 26.7 pg (27.0-33.4); MEAN CORPUSCULAR HGB CONC 33.1 g/dL (32.0-36.0); MEAN CORPUSCULAR VOLUME 81 fl (80-97); MONOCYTES % (AUTO) 7.4 % (3-13); PLATELET COUNT 281 10^3/uL (150-450); RED BLOOD COUNT 4.07 10^6/uL (3.72-5.28); RED CELL DISTRIBUTION WIDTH 15.6 % (11.5-14.0); SEGMENTED NEUTROPHILS % (AUTO) 48.6 % (42-78); TOTAL CELLS COUNTED % (AUTO) 100 %; WHITE BLOOD COUNT 6.3 10^3/uL (4.0-10.5)
[2018-02-02 22:16] LABS: ALANINE AMINOTRANSFERASE 14 U/L (9-52); ALBUMIN 4.3 g/dL (3.5-5.0); ALKALINE PHOSPHATASE 83 U/L (38-126); ANION GAP 11 (5-19); ASPARTATE AMINO TRANSFERASE 23 U/L (14-36); BILIRUBIN,DIRECT 0.1 mg/dL (0.0-0.4); BILIRUBIN,TOTAL 0.5 mg/dL (0.2-1.3); BLOOD UREA NITROGEN 14 mg/dL (7-20); CALCIUM 9.7 mg/dL (8.4-10.2); CARBON DIOXIDE 25 mmol/L (22-30); CHLORIDE 104 mmol/L (98-107); CREATINE KINASE 78 U/L (30-135); GLUCOSE 99 mg/dL (75-110); POTASSIUM 4.8 mmol/L (3.6-5.0); SODIUM 139.9 mmol/L (137-145); TOTAL PROTEIN 7.5 g/dL (6.3-8.2)
[2018-02-02 22:29] LABS: CREATINE KINASE MB < 0.22 ng/mL (<4.55); TROPONIN I < 0.012 ng/mL
--- NOTE | 2018-02-02 22:45 | ER Document Report ---
ED Medical Screen (RME) - General Chief Complaint: Chest Pain Stated Complaint: LEFT CHEST, NECK, ARM PAINS Time Seen by Provider: 02/02/18 22:43 Notes: Patient is a 42-year-old female presenting to the emergency department complaining of left chest pain radiating to her left shoulder. Patient also complains of shortness of breath for the last 3 weeks intermittently. Patient denies any URI symptoms or fever. Patient states chest discomfort started around 1700 hrs. this afternoon while she was sitting doing nothing. She does admit to working out for the first time this morning around 10 AM states she did sit ups, squats and was holding a plank. Patient states immediately after that she did not have the pain the pain did not start until 1700 this afternoon. Patient denies increased pain upon palpation but does state the chest pain hurts more when she takes a deep breath or coughs. Denies increasing pain range of motion of left shoulder. Past medical history: Hypertension Medications: Losartan patient denies taking any controls her blood thinner Allergies: Nothing Patient denies cigarette smoking, illicit drug use, EtOH use. Physical exam: Lung sounds clear to equal all merrill, no increased chest pain upon palpation, no crepitus felt anterior chest wall. Full range of motion of left shoulder capillary refill less than 2 seconds distal left arm. I have greeted and performed a rapid initial assessment of this patient. A comprehensive ED assessment and evaluation of the patient, analysis of test results and completion of the medical decision making process will be conducted by additional ED providers. TRAVEL OUTSIDE OF THE [place] IN LAST 30 DAYS: No - Related Data Allergies/Adverse Reactions: diphenhydramine [Diphenhydramine] Adverse Reaction (Intermediate, Verified 01/20 14:42) Anxiety Past Medical History - Past Medical History Cardiac Medical History: Reports: Hx Hypertension Renal/ Medical History: Reports: Hx Ovarian Cysts. Denies: Hx Peritoneal Dialysis Musculoskeltal Medical History: Reports Hx Musculoskeletal Trauma Past Surgical History: Reports: Hx Cholecystectomy, Hx Gynecologic Surgery - cyst removal, Hx Orthopedic Surgery - Foot surgery - Immunizations Hx Diphtheria, Pertussis, Tetanus Vaccination: Yes Physical Exam - Vital signs Vitals: Temp Pulse Resp BP Pulse Ox 98.4 F 73 20 156/103 H 98 02/02/18 21:23 02/02/18 21:23 02/02/18 21:23 02/02/18 21:23 02/02/18 21:23 Course - Vital Signs Vital signs: Temp Pulse Resp BP Pulse Ox 98.4 F 73 20 156/103 H 98 02/02/18 21:23 02/02/18 21:23 02/02/18 21:23 02/02/18 21:23 02/02/18 21:23 - Laboratory Result Diagrams: 02/02/18 21:10 02/02/18 21:10 Laboratory results interpreted by me: 02/02/18 21:10 Hgb 10.9 L Hct 32.8 L MCH 26.7 L RDW 15.6 H
[2018-02-02] MEDS ORDERED: ASPIRIN 81 MG TABLET, CHEWABLE ONE (23:08)
[2018-02-03 00:54] VITALS: BP 155/101
--- NOTE | 2018-02-03 01:53 | ER Document Report ---
ED General - General Chief Complaint: Chest Pain Stated Complaint: LEFT CHEST, NECK, ARM PAINS Time Seen by Provider: 02/02/18 22:43 Notes: Patient is a 42-year-old female presenting to the emergency department complaining of left chest pain radiating to her left shoulder. Patient also complains of shortness of breath for the last 3 weeks intermittently. Patient denies any URI symptoms or fever. Patient states chest discomfort started around 1700 hrs. this afternoon while she was sitting doing nothing. She does admit to working out for the first time in "a long time" this morning around 10 AM states she did sit ups, squats and was holding a plank. Patient states immediately after that she did not have the pain the pain did not start until 1700 this afternoon. Patient denies increased pain upon palpation but does state the chest pain hurts more when she takes a deep breath or coughs. Denies increasing pain range of motion of left shoulder. Past medical history: Hypertension Medications: Losartan patient denies taking any controls or blood thinner Allergies: Nothing Patient denies cigarette smoking, illicit drug use, EtOH use. TRAVEL OUTSIDE OF THE [place] IN LAST 30 DAYS: No - Related Data Allergies/Adverse Reactions: diphenhydramine [Diphenhydramine] Adverse Reaction (Intermediate, Verified 01/20 14:42) Anxiety Past Medical History - General Information source: Patient - Social History Smoking Status: Never Smoker Chew tobacco use (# tins/day): No Frequency of alcohol use: None Drug Abuse: None Lives with: Family Family History: Reviewed & Not Pertinent Patient has suicidal ideation: No Patient has homicidal ideation: No - Past Medical History Cardiac Medical History: Reports: Hx Hypertension Renal/ Medical History: Reports: Hx Ovarian Cysts. Denies: Hx Peritoneal Dialysis Musculoskeletal Medical History: Reports Hx Musculoskeletal Trauma Past Surgical History: Reports: Hx Cholecystectomy, Hx Gynecologic Surgery - cyst removal, Hx Orthopedic Surgery - Foot surgery - Immunizations Hx Diphtheria, Pertussis, Tetanus Vaccination: Yes Review of Systems - Review of Systems Constitutional: See HPI EENT: See HPI Cardiovascular: See HPI Respiratory: See HPI Gastrointestinal: No symptoms reported Genitourinary: No symptoms reported Female Genitourinary: Last menstrual period - 01/12 Musculoskeletal: No symptoms reported Skin: No symptoms reported Hematologic/Lymphatic: No symptoms reported Neurological/Psychological: No symptoms reported Physical Exam - Vital signs Vitals: Temp Pulse Resp BP Pulse Ox 98.4 F 73 20 156/103 H 98 02/02/18 21:23 02/02/18 21:23 02/02/18 21:23 02/02/18 21:23 02/02/18 21:23 - Notes Notes: GENERAL: Alert, interacts well. No acute distress. HEAD: Normocephalic, atraumatic. EYES: Pupils equal, round, and reactive to light. Extraocular movements intact. ENT: Oral mucosa moist, tongue midline. NECK: Full range of motion. Supple. Trachea midline. LUNGS: Clear to auscultation bilaterally, no wheezes, rales, or rhonchi. No respiratory distress. HEART: Regular rate and rhythm. No murmur. No crepitus felt anterior chest. Full range of motion left shoulder with no pain. Patient does state pain increases with deep breath and coughing. ABDOMEN: Soft, non-tender. Non-distended. Bowel sounds present in all 4 quadrants. EXTREMITIES: Moves all 4 extremities spontaneously. No edema, normal radial and dorsalis pedis pulses bilaterally. No cyanosis. BACK: no cervical, thoracic, lumbar midline tenderness. No saddle anesthesia, normal distal neurovascular exam. NEUROLOGICAL: Alert and oriented x3. Normal speech. cranial nerves II through XII grossly intact PSYCH: Normal affect, normal mood. SKIN: Warm, dry, normal turgor. No rashes or lesions noted. Course - Re-evaluation Re-evalutation: 02/03/18 01:55 Patient's repeat troponin is still negative. EKG shows no signs of ST segment changes. QTC 405 rate 68 sinus rhythm. Patient has a heart score of 1. Likely chest pain is due to a musculoskeletal origin. Patient states she is driving and would not like any sedating medications. Discussed discharge home with [facility]. Patient states she has Tylenol and Motrin at home and would not like a prescription for Toradol. Discussed need to follow-up with primary care provider in the next 24-48 hours. Return precautions discussed. 02/03/18 02:00 - Vital Signs Vital signs: Temp Pulse Resp BP Pulse Ox 98.4 F 73 21 H 155/101 H 100 02/02/18 21:23 02/02/18 21:23 02/03/18 00:36 02/03/18 00:36 02/03/18 00:36 - Laboratory Result Diagrams: 02/02/18 21:10 02/02/18 21:10 Laboratory results interpreted by me: 02/02/18 21:10 Hgb 10.9 L Hct 32.8 L MCH 26.7 L RDW 15.6 H Discharge - Discharge Clinical Impression: Chest pain Qualifiers: Chest pain type: other chest pain Qualified Code(s): R07.89 - Other chest pain ; R07.8 - Other chest pain Condition: Stable Disposition: HOME, SELF-CARE Instructions: Chest Wall Pain ([facility]), Chest Pain of Unclear Cause ([facility]) Additional Instructions: As we discussed your chest pain is most likely musculoskeletal in origin. Your blood tests came back negative for any sort of ischemic issue in your heart. He should always follow-up with your primary care provider in the next 12-24 hours. Please take prescription medications as prescribed. Please return to the emergency room for any other concerning symptoms Prescriptions: Cyclobenzaprine HCl [Flexeril 10 mg Tablet] 10 mg PO TIDP PRN #15 tab PRN Reason: Forms: Return to Work
--- NOTE | 2018-02-03 07:26 | EKG REPORT ---
SEVERITY:- BORDERLINE ECG - SINUS RHYTHM : Confirmed by: Amadeo Magana MD 03-Feb-2018 07:25:36
== END 2018-02-03 02:05 | disposition home or self-care (01) ==
LOC: ER 20:50
DX: R07.89 Other chest pain (principal); M25.512 Pain in left shoulder; R06.02 Shortness of breath; I10 Essential (primary) hypertension; Z79.899 Other long term (current) drug therapy
CPT/HCPCS: 36415; 71045; 80053; 82550; 82553; 84484; 85025; 93005; 93010; 99284

== ENCOUNTER 2018-05-16 08:24 | Emergency (ER) | payer OTHER ==
[2018-05-16 09:48] LABS: ABSOLUTE EOSINOPHILS # (AUTO) 0.1 10^3/uL (0.0-0.6); ABSOLUTE LYMPHOCYTES (AUTO) 1.2 10^3/uL (0.5-4.7); ABSOLUTE MONOCYTES (AUTO) 0.4 10^3/uL (0.1-1.4); ABSOLUTE NEUT (AUTO) 3.5 10^3/uL (1.7-8.2); BASOPHILS % (AUTO) 0.5 % (0-2); EOSINOPHILS % (AUTO) 1.5 % (0-6); HEMATOCRIT 34.1 % (36.0-47.0); HEMOGLOBIN 11.3 g/dL (12.0-15.5); MEAN CORPUSCULAR HEMOGLOBIN 26.9 pg (27.0-33.4); MEAN CORPUSCULAR VOLUME 82 fl (80-97); MONOCYTES % (AUTO) 7.7 % (3-13); PLATELET COUNT 304 10^3/uL (150-450); RED BLOOD COUNT 4.19 10^6/uL (3.72-5.28); RED CELL DISTRIBUTION WIDTH 15.8 % (11.5-14.0); SEGMENTED NEUTROPHILS % (AUTO) 67.3 % (42-78); TOTAL CELLS COUNTED % (AUTO) 100 %; WHITE BLOOD COUNT 5.3 10^3/uL (4.0-10.5)
[2018-05-16 10:03] LABS: ALANINE AMINOTRANSFERASE 19 U/L (9-52); ALBUMIN 4.2 g/dL (3.5-5.0); ALKALINE PHOSPHATASE 83 U/L (38-126); ANION GAP 12 (5-19); ASPARTATE AMINO TRANSFERASE 31 U/L (14-36); BILIRUBIN,DIRECT 0.4 mg/dL (0.0-0.4); BILIRUBIN,TOTAL 0.8 mg/dL (0.2-1.3); BLOOD UREA NITROGEN 17 mg/dL (7-20); CALCIUM 9.2 mg/dL (8.4-10.2); CARBON DIOXIDE 23 mmol/L (22-30); CHLORIDE 106 mmol/L (98-107); GLUCOSE 118 mg/dL (75-110); TOTAL PROTEIN 7.3 g/dL (6.3-8.2)
--- NOTE | 2018-05-16 10:19 | RADIOLOGY REPORT (SQ) ---
EXAM DESCRIPTION: U/S NON OB PEL TV W/DOPPLER COMPLETED DATE/TIME: 05/16/2018 10:02 am REASON FOR STUDY: heavy vaginal bleeding COMPARISON: Pelvic ultrasound 01/01/2017 TECHNIQUE: Dynamic and static grayscale images acquired of the pelvis via transvaginal approach and recorded on PACS. Additional selected color Doppler and spectral images recorded. LIMITATIONS: Endovaginal approach with enlarged fibroid uterus, uterine fundus incompletely included in the field of view FINDINGS: UTERUS: Uterus is 11 x 9 x 8 cm in size. Myometrium is near completely replaced with innu merable fibroids. ENDOMETRIAL STRIPE: Very difficult to visualize. Short segment of endometrium in the midbody measure s 12 mm in thickness, endometrium otherwise obscured. CERVIX: 12 mm nabothian cyst. RIGHT OVARY AND DOPPLER: Not visualized due to adnexal bowel gas and limited acoustic window. LEFT OVARY AND DOPPLER: Not visualized due to adnexal bowel gas and limited acoustic window. FREE FLUID: None noted. OTHER: No other significant finding. IMPRESSION: Enlarged fibroid uterus TECHNICAL DOCUMENTATION: JOB ID: [id number] [employer]- All Rights Reserved Rev-08/15 Reading location - IP/workstation name: [email or web address]
[2018-05-16 10:37] LABS: APPEARANCE,URINE SLIGHTLY-CLOUDY; BILIRUBIN,URINE NEGATIVE (NEGATIVE); COLOR,URINE YELLOW; GLUCOSE, URINE NEGATIVE (NEGATIVE); KETONES,URINE NEGATIVE (NEGATIVE); LEUKOCYTE ESTERASE,URINE TRACE (NEGATIVE); NITRITE,URINE NEGATIVE (NEGATIVE); PROTEIN,URINE NEGATIVE (NEGATIVE)
--- NOTE | 2018-05-16 11:34 | ER Document Report ---
ED GI/ - General Chief Complaint: Vaginal Bleeding Stated Complaint: ABNORMAL BLEEDING Time Seen by Provider: 05/16/18 08:43 Primary Care Provider: JULISSA MANN MD [Primary Care Provider] - Follow up as needed Notes: Patient is an otherwise healthy 42-year-old female presenting with chief complaint of vaginal bleeding ongoing for 13 days now. Patient reports associated fatigue. Patient does report she has a history of heavy periods it typically lasts between 7 and 10 days. She has a history of fibroids, endometriosis and hypertension. Patient reports some low abdominal cramping but denies any pain. Patient states she has taken Provera multiple times in the past and states that on a few occasions that helped and on a few occasions it did nothing. Patient reports she has an appointment with a ELECTRONIC INDUSTRIAL CONTROLS MECHANIC in [place], Dr. Madrid coming up in 2 weeks. She plans at that time to discuss either Mirena IUD placement or uterine ablation. Patient reports she is changing her pad approximately once every 2 hours. TRAVEL OUTSIDE OF THE [place] IN LAST 30 DAYS: No - Related Data Allergies/Adverse Reactions: diphenhydramine [Diphenhydramine] Adverse Reaction (Intermediate, Verified 05/16/18 08:24) Anxiety Past Medical History - General Information source: Patient - Social History Smoking Status: Never Smoker Frequency of alcohol use: None Drug Abuse: None Family History: Reviewed & Not Pertinent Patient has suicidal ideation: No Patient has homicidal ideation: No - Past Medical History Cardiac Medical History: Reports: Hx Hypertension Renal/ Medical History: Reports: Hx Ovarian Cysts. Denies: Hx Peritoneal Dialysis Musculoskeletal Medical History: Reports Hx Musculoskeletal Trauma Past Surgical History: Reports: Hx Cholecystectomy, Hx Gynecologic Surgery - cyst removal, Hx Orthopedic Surgery - Foot surgery - Immunizations Hx Diphtheria, Pertussis, Tetanus Vaccination: Yes Review of Systems - Review of Systems Constitutional: Other - Fatigue EENT: No symptoms reported Cardiovascular: No symptoms reported Respiratory: No symptoms reported Gastrointestinal: No symptoms reported Genitourinary: No symptoms reported Female Genitourinary: Vaginal bleeding Musculoskeletal: No symptoms reported Skin: No symptoms reported Hematologic/Lymphatic: No symptoms reported Neurological/Psychological: No symptoms reported Physical Exam - Vital signs Vitals: Temp Pulse Resp BP Pulse Ox 98.5 F 95 20 138/95 H 95 05/16/18 08:27 05/16/18 08:27 05/16/18 08:27 05/16/18 08:27 05/16/18 08:27 - Notes Notes: PHYSICAL EXAMINATION: GENERAL: Well-appearing, well-nourished and in no acute distress. HEAD: Atraumatic, normocephalic. EYES: Pupils equal round and reactive to light, extraocular movements intact, conjunctiva are normal. ENT: Nares patent, oropharynx clear without exudates. Moist mucous membranes. NECK: Normal range of motion, supple without lymphadenopathy LUNGS: Breath sounds clear to auscultation bilaterally and equal. No wheezes rales or rhonchi. HEART: Regular rate and rhythm without murmurs ABDOMEN: Soft, nontender, nondistended abdomen. No guarding, no rebound. No m asses appreciated. Female : No CVA tenderness. Musculoskeletal: Normal range of motion, no pitting or edema. No cyanosis. NEUROLOGICAL: Cranial nerves grossly intact. Normal speech, normal gait. Normal sensory, motor exams PSYCH: Normal mood, normal affect. SKIN: Warm, Dry, normal turgor, no rashes or lesions noted. Course - Re-evaluation Re-evalutation: Patient reports bleeding has stopped at this time. CBC and CMP are unremarkable. Urinalysis with no indications of infection. Transvaginal ultrasound reveals a fibroid uterus. All of this was discussed with the patient who would like to be started back on Provera as she states this has worked previously. Patient already has an appointment scheduled with a structural steel engineer. Encouraged her to keep this appointment. Patient given ED return precautions. - Vital Signs Vital signs: Temp Pulse Resp BP Pulse Ox 98.6 F 86 16 138/76 H 100 05/16/18 11:51 05/16/18 11:51 05/16/18 11:51 05/16/18 11:51 05/16/18 11:51 - Laboratory Result Diagrams: 05/16/18 09:32 05/16/18 09:32 Laboratory results interpreted by me: 05/16/18 05/16/18 05/16/18 09:32 09:32 10:23 Hgb 11.3 L Hct 34.1 L MCH 26.9 L RDW 15.8 H Glucose 118 H Urine Blood LARGE H Urine Urobilinogen 4.0 H Ur Leukocyte Esterase TRACE H Discharge - Discharge Clinical Impression: Vaginal bleeding Disposition: HOME, SELF-CARE Additional Instructions: VAGINAL BLEEDING: You are having an episode of abnormal bleeding. Causes of abnormal vaginal bleeding can include miscarriage or tubal , tumors such as cancer or benign fibroids, medication effects, or hormone imbalance. Testing can eliminate unsuspected , tumors, or infection as a cause. "Dysfunctional uterine bleeding" is due to hormone imbalance, and is especially common at times when the normal cycle is disturbed -- whether by recent , use of control pills or hormones, or impending menopause. If the bleeding is innocent, most commonly a short course of hormones is given to restore the uterus to normal. Sometimes, the normal menstrual cycle corrects itself naturally. Sometimes, brief hormone therapy, or even a D&C is required. Your physician will advise you. Treatment for anemia may be required if bleeding is severe. You should rest and avoid intercourse until the bleeding is controlled. Call the doctor or return for re-examination if you feel faint, have increasing pain, or have a major increase in the amount of bleeding. FIBROIDS: Fibroids are benign growths or tumors in the uterus. They can cause enlargement of the uterus, irregular bleeding, severe bleeding with periods, and abdominal pain. Anemia may result if periods are heavy. Fibroids tend to grow until menopause, then slowly shrink. If fibroids cause severe symptoms, they can be treated surgically. Call or return if vaginal bleeding or pain becomes severe. NORMAL EXAM AND WORKUP: At this time, except for vaginal bleeding, your examination and workup show no significant abnormality. No significant abnormal physical findings were noted. All laboratory, EKG, and imaging (x-ray, CT scans, ultrasound) studies that were ordered show no significant abnormality. Although your examination and all studies that were ordered showed no significant abnormal finding, there are no examinations and no studies that are 100% accurate. There is always the possibility that some abnormality could exist and not be detected with physical examination or within the limits and capabilities of laboratory and other studies. You should return or follow up as you were instructed on your visit today for further evaluation if your symptoms do not resolve. PROVERA: Provera (medroxyprogesterone) is usually used to stop excessive uterine bleeding or to regulate the periods. Provera is a form of progesterone, the hormone that stimulates the uterus lining to mature during the second half of your cycle. High doses of Provera can usually stop uterine bleeding. It's most useful for the abnormal bleeding that occurs when periods are irregular, such as around menopause. Provera usually isn't helpful for bleeding that occurs after Depo- Provera or Norplant. There is often another heavy "period" when you finish the Provera. Afterwards, the periods usually return to normal within a month or two. Contact your doctor if bleeding becomes more severe, or if you develop abdominal pain, lightheadedness, fever, or other new symptoms. FOLLOW-UP CARE: If you have been referred to a physician for follow-up care, call the physicians office for an appointment as you were instructed or within the next two days. If you experience worsening or a significant change in your symptoms (very heavy bleeding with large clots of blood, passage of tissue, more severe abdominal / pelvic pain or cramping, feeling faint or severe weakness, fever, etc.), notify the physician immediately or return to the Emergency Department at any time for re-evaluation. OBSTETRIC-GYNECOLOGIC (OB-E[employer]RON[employer]AL CONTR[employer] MECHANIC) PHYSICIANS IN [place]: [facility] [address], [place] [phone] [facility] [address] [place] [address] [phone] Your blood counts were normal today. Please take medications as prescribed. Please keep the appointment that you have scheduled with your ELECT[employer] MECHANIC provider, Dr. Madrid in [place]. I have also given you the number of other E[employer] MECH[employer]IC providers that may be available to help you. Prescriptions: Medroxyprogesterone Acet [Provera 10 Mg Tablet] 10 mg PO DAILY #10 tablet Forms: Return to Work Referrals: JULISSA MANN MD [Primary Care Provider] - Follow up as needed
[2018-05-16] MEDS ORDERED: MEDROXYPROGESTERONE ACET 10 MG TABLET PO ONE (11:38)
[2018-05-16 11:53] VITALS: BP 138/76
== END 2018-05-16 11:53 | disposition home or self-care (01) ==
LOC: ER 08:24
DX: N93.9 Abnormal uterine and vaginal bleeding, unspecified (principal); I10 Essential (primary) hypertension
CPT/HCPCS: 99284; 36415; 85025; 80053; 81001; 76830; 93976; J3490

== ENCOUNTER 2020-01-04 13:07 | Emergency (ER) | payer BC, OTHER ==
[2020-01-04] MEDS ORDERED: ONDANSETRON HCL INJ/PF 4 MG/2 ML SDV IV ONE (14:02)
[2020-01-04] MEDS ORDERED: NORMAL SALINE 1000 ML 1,000 ML IV ONE (14:02)
[2020-01-04 14:28] LABS: ABSOLUTE BASOPHILS # (AUTO) 0.1 10^3/uL (0.0-0.2); ABSOLUTE EOSINOPHILS # (AUTO) 0.1 10^3/uL (0.0-0.6); ABSOLUTE LYMPHOCYTES (AUTO) 2.2 10^3/uL (0.5-4.7); ABSOLUTE MONOCYTES (AUTO) 0.4 10^3/uL (0.1-1.4); ABSOLUTE NEUT (AUTO) 2.7 10^3/uL (1.7-8.2); BASOPHILS % (AUTO) 1.2 % (0-2); HEMOGLOBIN 13.6 g/dL (12.0-15.5); MEAN CORPUSCULAR HEMOGLOBIN 28.6 pg (27.0-33.4); MEAN CORPUSCULAR HGB CONC 34.7 g/dL (32.0-36.0); MEAN CORPUSCULAR VOLUME 82 fl (80-97); MONOCYTES % (AUTO) 6.9 % (3-13); PLATELET COUNT 325 10^3/uL (150-450); RED BLOOD COUNT 4.74 10^6/uL (3.72-5.28); RED CELL DISTRIBUTION WIDTH 14.8 % (11.5-14.0); SEGMENTED NEUTROPHILS % (AUTO) 49.9 % (42-78); TOTAL CELLS COUNTED % (AUTO) 100 %; WHITE BLOOD COUNT 5.4 10^3/uL (4.0-10.5)
[2020-01-04 14:38] LABS: APPEARANCE,URINE SLIGHTLY-CLOUDY; BILIRUBIN,URINE NEGATIVE (NEGATIVE); COLOR,URINE YELLOW; GLUCOSE, URINE NEGATIVE (NEGATIVE); KETONES,URINE NEGATIVE (NEGATIVE); LEUKOCYTE ESTERASE,URINE NEGATIVE (NEGATIVE); NITRITE,URINE NEGATIVE (NEGATIVE); PROTEIN,URINE NEGATIVE (NEGATIVE); URINE SPECIFIC GRAVITY 1.024
[2020-01-04 14:49] LABS: ALBUMIN 4.6 g/dL (3.5-5.0); ALKALINE PHOSPHATASE 86 U/L (38-126); ANION GAP 12 (5-19); ASPARTATE AMINO TRANSFERASE 28 U/L (14-36); BILIRUBIN,DIRECT 0.2 mg/dL (0.0-0.4); BILIRUBIN,TOTAL 0.9 mg/dL (0.2-1.3); BLOOD UREA NITROGEN 15 mg/dL (7-20); CALCIUM 9.7 mg/dL (8.4-10.2); CARBON DIOXIDE 24 mmol/L (22-30); CHLORIDE 106 mmol/L (98-107); GLUCOSE 95 mg/dL (75-110); POTASSIUM 4.5 mmol/L (3.6-5.0)
--- NOTE | 2020-01-04 17:07 | ER Document Report ---
ED Medical Screen (RME) - General Chief Complaint: Post Surgical Bleeding Stated Complaint: ABDOMINAL PAIN Time Seen by Provider: 01/04/20 13:52 Primary Care Provider: JULISSA MANN MD [Primary Care Provider] - Follow up as needed TRAVEL OUTSIDE OF THE [place] IN LAST 30 DAYS: No - HPI Notes: 01/04/20 16:36 44-year-old female presents emergency room with complaints of periumbilical pain that has been intermittent since she had a partial hysterectomy that was done 3 months ago due to history of endometriosis fibroids. Patient has been out of work since September and October because she kept having pain, she started working last week, she stated she started bleeding from her keloids. Patient states that she is concerned that she may have a hernia or adhesions, which she thinks may be causing her abdominal pain to become worse patient reports her last bowel movement was yesterday, denies any vomiting or diarrhea does report some nausea. Patient is concerned because she is having more pain today. Denies any trauma or falling. I have greeted and performed a rapid initial assessment of this patient. A comprehensive ED assessment and evaluation of the patient, analysis of test results and completion of the medical decision making process will be conducted by additional ED providers. PHYSICAL EXAMINATION: GENERAL: Well-appearing, well-nourished and in no acute distress. CV: s1, s2 regular LUNGS: No respiratory distress ABD: Tenderness to periumbilical area, noted tenderness along abdominal hysterectomy scar Musculoskeletal: Normal range of motion NEUROLOGICAL: Normal speech, normal gait. SKIN: Warm, Dry, normal turgor, no rashes or lesions noted. - Related Data Allergies/Adverse Reactions: diphenhydramine [Diphenhydramine] Adverse Reaction (Intermediate, Verified 01/04/20 13:53) Anxiety Home Medications: effexor Past Medical History - Social History Chew tobacco use (# tins/day): No Frequency of alcohol use: None Drug Abuse: None - Past Medical History Cardiac Medical History: Reports: Hx Hypertension Renal/ Medical History: Reports: Hx Ovarian Cysts. Denies: Hx Peritoneal Dialysis Musculoskeltal Medical History: Reports Hx Musculoskeletal Trauma Past Surgical History: Reports: Hx Cholecystectomy, Hx Gynecologic Surgery - cyst removal, Hx Orthopedic Surgery - Foot surgery - Immunizations Hx Diphtheria, Pertussis, Tetanus Vaccination: Yes Physical Exam - Vital signs Vitals: Temp Pulse Resp BP Pulse Ox 97.9 F 74 16 140/84 H 100 01/04/20 13:19 01/04/20 13:19 01/04/20 13:19 01/04/20 13:19 01/04/20 13:19 Course - Vital Signs Vital signs: Temp Pulse Resp BP Pulse Ox 97.9 F 74 16 140/84 H 100 01/04/20 13:19 01/04/20 13:19 01/04/20 13:19 01/04/20 13:19 01/04/20 13:19 - Laboratory Result Diagrams: 01/04/20 14:16 01/04/20 14:16 Laboratory results interpreted by me: 01/04/20 01/04/20 01/04/20 14:16 14:16 14:16 RDW 14.8 H Creatinine 1.26 H Est GFR ( Amer) 56 L Est GFR (MDRD) Non-Af 46 L Urine Blood SMALL H Urine Urobilinogen 4.0 H Doctor's Discharge - Discharge Referrals: JULISSA MANN MD [Primary Care Provider] - Follow up as needed
[2020-01-04] MEDS ORDERED: ONDANSETRON HCL INJ/PF 4 MG/2 ML SDV ONE (17:42)
--- NOTE | 2020-01-04 17:48 | RADIOLOGY REPORT (SQ) ---
EXAM DESCRIPTION: CT ABD/PELVIS WITH IV ORAL IMAGES COMPLETED DATE/TIME: 01/04/2020 5:26 pm REASON FOR STUDY: umbilical pain,hx open partial hysterectomy w/endo COMPARISON: None. TECHNIQUE: CT scan of the abdomen and pelvis performed using helical scanning technique with dynamic intravenous contrast injection. No oral contrast. Images reviewed with lung, soft tissue, and bone w indows. Reconstructed coronal and sagittal MPR images reviewed. Delayed images for evaluation of the urinary system also acquired. All images stored on PACS. All CT scanners at this facility use dose modulation, iterative reconstruction, and/or weight based d osing when appropriate to reduce radiation dose to as low as reasonably achievable (ALARA). [facility]: Dose Right [facility]: CareDose [facility]: Dose Right [facility]: Teradose 4D [facility]: Lottay CONTRAST TYPE AND DOSE: contrast/concentration: Isovue 350.00 mmol/ml; Total Contrast Delivered: 100 .0 ml; Total Saline Delivered: 16.6 ml RENAL FUNCTION: None required. The patient is less than 50 years old. RADIATION DOSE: CT Rad equipment meets quality standard of care and radiation dose reduction techniq ues were employed. CTDIvol: 13.3 - 18.2 mGy. DLP: 1864 mGy-cm.. LIMITATIONS: None. FINDINGS: LOWER CHEST: No significant findings. LIVER: Normal size. No enhancing masses. No dilated ducts. SPLEEN: Normal size. No focal lesions. PANCREAS: No masses identified. No significant calcifications. No adjacent inflammation or peripancre atic fluid collections. Pancreatic duct not dilated. GALLBLADDER: Surgically absent. ADRENAL GLANDS: No significant masses. RIGHT KIDNEY AND URETER: No cysts identified. No solid masses identified. No calcified stones. No hyd ronephrosis or hydroureter. LEFT KIDNEY AND URETER: No cysts identified. No solid masses identified. No calcified stones. No hydr onephrosis or hydroureter. AORTA AND VESSELS: No aneurysm. No dissection. Renal arteries, SMA, celiac without significant stenos is. RETROPERITONEUM: No bulky retroperitoneal adenopathy. BOWEL AND PERITONEAL CAVITY: No obstruction or inflammatory changes. No free fluid. APPENDIX: Normal. PELVIS: Prior hysterectomy. No free fluid. Unremarkable bladder. ABDOMINAL WALL: No masses. No hernias. BONES: No acute findings. OTHER: No other significant finding. IMPRESSION: NO ACUTE FINDINGS IN THE ABDOMEN OR PELVIS ON CT SCAN WITH IV CONTRAST. TECHNICAL DOCUMENTATION: JOB ID: [id number] [id number] Quality ID # [id number]: Final reports with documentation of one or more dose reduction techniques (e.g., Au tomated exposure control, adjustment of the mA and/or kV according to patient size, use of iterative reconstruction technique) 2010 [employer]- All Rights Reserved Reading location - IP/workstation name: [email or web address]
--- NOTE | 2020-01-04 18:14 | ER Document Report ---
ED General - General Chief Complaint: Post Surgical Bleeding Stated Complaint: ABDOMINAL PAIN Time Seen by Provider: 01/04/20 13:52 Primary Care Provider: JULISSA MANN MD [Primary Care Provider] - Follow up as needed Mode of Arrival: Ambulatory Information source: Patient Notes: Patient is a 44-year-old -[place] female coming in today with some bleeding from her operative sites. 3 months ago she had a hysterectomy and some fibroid tumors removed. She has been out of work for a couple of months. 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 States whenever she goes to work some of the areas of her transverse abdominal incision open up and bleed. She has increased pain in that area now. She saw her surgeon recently and her surgeon indicated there might be may be some fluid pockets under there that may be trying to drain themselves. In any event, the patient comes here today to get it checked out and make sure she does not have adhesions from the previous surgery or any other areas requiring surgical intervention. He had no fevers or chills. No nausea or vomiting. Has been constipated but recently was able to move her bowels last night. TRAVEL OUTSIDE OF THE [place] IN LAST 30 DAYS: No - Related Data Allergies/Adverse Reactions: diphenhydramine [Diphenhydramine] Adverse Reaction (Intermediate, Verified 01/04/20 13:53) Anxiety Home Medications: effexor Past Medical History - Social History Smoking Status: Never Smoker Chew tobacco use (# tins/day): No Frequency of alcohol use: None Drug Abuse: None Family History: Reviewed & Not Pertinent Patient has homicidal ideation: No - Past Medical History Cardiac Medical History: Reports: Hx Hypertension Renal/ Medical History: Reports: Hx Ovarian Cysts. Denies: Hx Peritoneal Dialysis Musculoskeletal Medical History: Reports Hx Musculoskeletal Trauma Psychiatric Medical History: Reports: Hx Depression - anxiety Past Surgical History: Reports: Hx Cholecystectomy, Hx Gynecologic Surgery - cyst removal, Hx Hysterectomy, Hx Orthopedic Surgery - Foot surgery - Immunizations Hx Diphtheria, Pertussis, Tetanus Vaccination: Yes Review of Systems - Review of Systems Notes: Constitutional: No fevers. No chills. EENT: No eye redness. No eye pain. No ear pain. No sore throat. Cardiovascular: No chest pain. No palpitations. Respiratory: No cough. No shortness of breath. No respiratory distress. Gastrointestinal: +abdominal pain. No nausea, vomiting, or diarrhea. Genitourinary: Atraumatic. No lesions. No pain. No discharge. Musculoskeletal: Atraumatic. No swelling. No deformities. Skin: No rash or lesions. Positive bleeding postoperative incision lower abdomen Lymphatic: No swollen lymph nodes. Neurologic: No headache. No syncope. Psychiatric: No suicidal or homicidal ideation. Physical Exam - Vital signs Vitals: Temp Pulse Resp BP Pulse Ox 97.9 F 74 16 140/84 H 100 01/04/20 13:19 01/04/20 13:19 01/04/20 13:19 01/04/20 13:19 01/04/20 13:19 - Notes Notes: General: Well-developed, well-nourished. In no acute distress. Non-toxic appearing. Cardiac: Well-perfused. Regular rate and rhythm. No murmurs, rubs, or gallops. Pulmonary: No respiratory distress. No cyanosis. Bilateral lung fiels are clear to auscultation. Abdominal: Non-distended. Non-rigid. No guarding or rebound. There is a tra nsverse lower abdominal incision which appears well-healed. No overt areas of dehiscence. No fluid or bleeding present in these areas. Generalized lower abdominal tenderness. No rigidity. Nondistended. Normal bowel sounds all 4 quadrants HEENT: Head is atraumatic. Conjunctivae not reddened. No tearing. PERRL. EOMI. Orbits atraumatic. No periorbital swelling or erythema. Oropharynx is without erythema, swelling, or exudates. Neck: Supple. No adenopathy. No meningismus. Dermatologic: Warm with good turgor. No rash. Atraumatic. Chest: Atraumatic. No chest wall tenderness to palpation. Musculoskeletal: Moves all extremities well. No range of motion deficits. no muscular or joint tenderness. No paraspinal muscle tenderness. no midline spinal tenderness or step-off. Genitourinary: Examination deferred Neurologic: No gross neurologic deficits. Psychiatric: Normal mood. Course - Re-evaluation Re-evalutation: 01/04/20 18:12 No evidence of any abdominal pathology on contrasted scan. Will defer patient back to her surgeon for further intervention. - Vital Signs Vital signs: Temp Pulse Resp BP Pulse Ox 97.9 F 74 16 140/84 H 100 01/04/20 13:19 01/04/20 13:19 01/04/20 13:19 01/04/20 13:19 01/04/20 13:19 - Laboratory Result Diagrams: 01/04/20 14:16 01/04/20 14:16 Laboratory results interpreted by me: 01/04/20 01/04/20 01/04/20 14:16 14:16 14:16 RDW 14.8 H Creatinine 1.26 H Est GFR ( Amer) 56 L Est GFR (MDRD) Non-Af 46 L Urine Blood SMALL H Urine Urobilinogen 4.0 H Discharge - Discharge Clinical Impression: Post-op bleeding Qualifiers: Surgical complication system/body Area: skin Procedure type: dermatologic Qualified Code(s): L76.21 - Postprocedural hemorrhage of skin and subcutaneous tissue following a dermatologic procedure Condition: Good Disposition: HOME, SELF-CARE Instructions: Abdominal Pain ([facility]) Additional Instructions: Your lab work and your CT scan are unremarkable for any fluid collections or adhesions. Please follow-up with your surgeon for further instructions. Referrals: JULISSA MANN MD [Primary Care Provider] - Follow up as needed
[2020-01-04 18:47] VITALS: BP 150/97
== END 2020-01-04 18:46 | disposition home or self-care (01) ==
LOC: ER 13:07
DX: L76.21 Postprocedural hemorrhage of skin and subcutaneous tissue following a dermatologic procedure (principal); I10 Essential (primary) hypertension; Z90.49 Acquired absence of other specified parts of digestive tract; Z90.710 Acquired absence of both cervix and uterus
CPT/HCPCS: 99285; 96361; 96374; 36415; 83690; 85025; 81025; 80053; 81001; 74177; J2405; J7030